=== PATIENT | female | born 1955 | race Caucasian/White ===

== ENCOUNTER 2016-09-17 09:07 | Outpatient (CLI) | payer OTHER ==
[2016-01-22 16:39] VITALS: BP 161/80
--- NOTE | 2016-09-17 14:13 | Diagnostic Imaging Report ---
Name: RAFIQ SELF ~~ ~~ : 57 ~~ Acc #: [id number]~~ DOS: Sep 17, 2016 10:02:41 AM CDT ~~ Mod: MR ~~ Desc: MRI UP EXT JNT W/O CONTRAST 1 of 1 NATALIE VIERA MD~ [address] [address] ~ ~ ~ ~ Report Submission Date: Sep 17, 2016 11:58:05 AM CDT Patient ~ Study Name: RAFIQ SELF ~ Date: Sep 17, 2016 10:02:41 AM CDT ~ Modality Type: MR Gender: F ~ Description: MRI UP EXT JNT W/O CONTRAST : 57 ~ Institution: [facility] Physician: NATALIE VIERA MD ~ ~ ~ ~ HISTORY: 61-year-old female with right shoulder pain for 2 months, limited range of motion, bicipital tendonitis. COMPARISON: None available. TECHNIQUE: Multiplanar multisequence noncontrast MR images of the right shoulder were performed. FINDINGS: There is a full-thickness tear of the anterior aspect of the supraspinatus tendon involving about 80% of the AP dimension of the tendon on parasagittal images. ~A small portion of the tendon remains intact posteriorly. ~There are partial-thickness intrasubstance and bursal surface tears of the infraspinatus tendon. ~There is intrasubstance signal abnormality of the subscapularis near the insertion. ~There is mild signal abnormality of the long head of the biceps tendon as it passes over the lesser tuberosity. ~The labrum is intact. ~The long head of the biceps tendon is located in the bicipital groove. ~There is acromioclavicular hypertrophy. ~Subacromial space is narrowed to 3.5 mm laterally. ~The acromion is laterally downsloping. ~The undersurface of the acromion is curved (type 2). ~There is a small to moderate glenohumeral effusion which communicates with fluid in the subacromial region. IMPRESSION: 1. ~Full-thickness tear of the anterior aspect of the supraspinatus tendon involving majority of the tendon; there are also partial thickness tears of the infraspinatus tendon and subscapularis tendinosis. 2. ~Acromioclavicular hypertrophy with type 2 laterally downsloping acromion and narrowing of the lateral subacromial space. ~These factors may be related to clinical symptoms of subacromial impingement. 3. ~Signal abnormality of the intra-articular portion of the long head of the biceps tendon suggestive of tendinosis. 4. ~Glenohumeral effusion communicates with fluid in the subacromial region. ~ Electronically signed on Sep 17, 2016 11:58:05 AM CDT by: Martinez FARAH
== END 2016-09-17 09:30 ==
LOC: RAD 09:07
PROVIDERS: ATTEND Orthopaedic Surgery
DX: M75.21 Bicipital tendinitis, right shoulder (principal)
CPT/HCPCS: 73221

== ENCOUNTER 2017-02-21 07:00 | Outpatient (CLI) | payer OTHER ==
[2016-01-22 16:39] VITALS: BP 161/80
== END 2017-02-21 07:02 ==
LOC: RAD 07:00
PROVIDERS: ATTEND Family Medicine
DX: Z13.820 Encounter for screening for osteoporosis (principal)
CPT/HCPCS: 77080

== ENCOUNTER 2017-03-14 07:44 | Outpatient (CLI) | payer OTHER ==
[2016-01-22 16:39] VITALS: BP 161/80
[2017-03-15 08:50] LABS: BASOPHILS % 0.4 (0.0-1.5); EOSINOPHILS % 4.5 % (0.0-6.8); MEAN CORPUSCULAR HEMOGLOBIN 30.8 pg (28.0-34.0); MEAN CORPUSCULAR VOLUME 86.4 fl (80.0-100.0); MONOCYTES % 5.4 % (0.0-11.0); NEUTROPHILS # 3.7 # k/uL (1.4-7.7)
[2017-03-15 09:39] LABS: eGFR (African) > 60; eGFR (Non-African) > 60
== END 2017-03-14 07:45 ==
LOC: LAB 07:44
PROVIDERS: ATTEND Family Medicine
DX: Z00.00 Encounter for general adult medical examination without abnormal findings (principal)
CPT/HCPCS: 36415; 80053; 80061; 82306; 84443; 85025

== ENCOUNTER 2017-06-22 09:34 | Outpatient (CLI) | payer OTHER ==
[2016-01-22 16:39] VITALS: BP 161/80
[2017-06-22 18:51] LABS: DIRECT BILIRUBIN 0.2 mg/dL (<0.4); TOTAL PROTEIN 7.5 g/dL (6.0-8.5)
== END 2017-06-22 09:35 ==
LOC: LAB 09:34
PROVIDERS: ATTEND Physician Assistant
DX: B35.1 Tinea unguium (principal); Z79.899 Other long term (current) drug therapy
CPT/HCPCS: 36415; 80076

== ENCOUNTER 2017-10-24 07:57 | Outpatient (CLI) | payer OTHER ==
[2016-01-22 16:39] VITALS: BP 161/80
[2017-10-24 09:44] LABS: eGFR (African) > 60; eGFR (Non-African) > 60
[2017-10-24 09:49] LABS: BASOPHILS % 0.5 (0.0-1.5); EOSINOPHILS % 2.8 % (0.0-6.8); MEAN CORPUSCULAR HEMOGLOBIN 30.2 pg (28.0-34.0); NEUTROPHILS # 3.1 # k/uL (1.4-7.7)
== END 2017-10-24 08:00 ==
LOC: LAB 07:57
PROVIDERS: ATTEND Physician Assistant Medical
DX: E03.9 Hypothyroidism, unspecified (principal); E78.5 Hyperlipidemia, unspecified; R53.83 Other fatigue; R06.83 Snoring
CPT/HCPCS: 36415; 80053; 80061; 84443; 85025